=== PATIENT | female | born 1955 | race Two or more races ===

== ENCOUNTER 2018-11-13 05:32 | Day surgery (SDC) | payer OTHER ==
[~2018-11-13 05:32] MED LIST: BENLYSTA; MILLIPRED5 MG PO; PLAQUENIL PO; PRILOSEC OTC20 MG PO
== END 2018-11-13 15:45 | disposition home or self-care (01) ==
LOC: CIR.AMB 05:32
DX: K64.8 Other hemorrhoids (principal)

== ENCOUNTER 2018-11-18 12:12 | Emergency (ER) | payer OTHER ==
[~2018-11-18] VITALS: Ht 162.6 cm; Wt 49.9 kg
== END 2018-11-18 23:16 | disposition home or self-care (01) ==
LOC: ER 12:12
DX: G89.18 Other acute postprocedural pain (principal); K62.89 Other specified diseases of anus and rectum; K91.841 Postprocedural hemorrhage of a digestive system organ or structure following other procedure